=== PATIENT | female | born 1995 | race American Indian/Alaskan Native ===

== ENCOUNTER 2018-12-09 12:12 | Emergency (ER) | payer MEDICAID ==
[~2018-12-09] VITALS: Ht 149.9 cm; Wt 48.0 kg
[2018-12-09] MEDS ORDERED: IBUPROFEN 600MG TABLET PO ONE (15:45)
[2018-12-09] MEDS ORDERED: HYDROCODONE/ACETAMINOPHEN 5/325MG TABLET PO ONE (18:00)
[2018-12-09 20:34] VITALS: BP 129/92
== END 2018-12-09 20:35 | disposition home or self-care (01) ==
LOC: ER 12:12
DX: S62.141A Displaced fracture of body of hamate [unciform] bone, right wrist, initial encounter for closed fracture (principal); F17.200 Nicotine dependence, unspecified, uncomplicated; X50.9XXA Other and unspecified overexertion or strenuous movements or postures, initial encounter; Y93.89 Activity, other specified; Y92.89 Other specified places as the place of occurrence of the external cause; Y99.8 Other external cause status
CPT/HCPCS: 29125; 73110; 73130; 73200; 99284